=== PATIENT | female | born 1995 | race Caucasian/White ===

== ENCOUNTER 2017-09-29 19:50 | Inpatient (IN) | payer BC, MEDICAID ==
[~2017-09-29] VITALS: Ht 160 cm; Wt 59.5 kg
[2017-09-29] VITALS (10 sets, daily range): BP systolic 99–127; BP diastolic 53–84; PULSE 71–100; TEMP 98
[2017-09-29 21:54] LABS: BASO % 0.2 % (0.0-2.0); EOS % 0.3 % (0-4.0); GRAN # 9.8 (1.4-6.5); GRAN % 80.6 % (42.2-75.2); HEMATOCRIT 40.1 % (35.0-45.0); HEMOGLOBIN 13.8 g/dl (12.0-15.0); LYMPH # 1.5 (1.2-3.4); MEAN CELL VOLUME 90 fl (80.0-95.0); MEAN CORPUSCULAR HEMOGLOBIN 31 pg (26.0-32.0); MEAN CORPUSCULAR HGB CONC 34 g/dl (33.0-37.0); MEAN PLATELET VOLUME 11.5 fl (7.4-10.4); MONO # 0.7 (0.1-0.6); MONO % 5.9 % (1.7-9.3); PLATELET COUNT 207 K/mm3 (130-400); RED BLOOD COUNT 4.47 M/mm3 (4.10-5.30); WHITE BLOOD COUNT 12.1 K/mm3 (4.8-10.8)
[2017-09-29 22:05] LABS: AMPHETAMINE URINE NEGATIVE; BARBITURATES URINE NEGATIVE; BENZODIAZEPINES URINE NEGATIVE; BUPRENORPHINE URINE NEGATIVE; METHADONE URINE NEGATIVE; OPIATES URINE NEGATIVE; OXYCODONE URINE NEGATIVE; PHENCYCLIDINE URINE NEGATIVE; PROPOXYPHENE URINE NEGATIVE; THC CANNABINOIDS URINE NEGATIVE; TRICYCLIC ANTIDEPRESS URINE NEGATIVE
[2017-09-30] VITALS (44 sets, daily range): BP systolic 94–135; BP diastolic 53–86; PULSE 60–153; TEMP 97.5–99.6
[2017-09-30] MEDS ORDERED: PRENATAL (10:09)
[2017-10-01 07:46] LABS: HEMATOCRIT 30.8 % (35.0-45.0); HEMOGLOBIN 10.5 g/dl (12.0-15.0)
[2017-10-01 07:59] VITALS: BP 110/70; PULSE 78; TEMP 98.1
[2017-10-01] MEDS ORDERED: IBU600 MG PO (12:34)
== END 2017-10-01 15:22 | disposition home or self-care (01) | DRG 775 ==
LOC: LDRO 19:50 → OB 21:21 → LDR 21:21 → OB 09-30 11:11
PROVIDERS: Obstetrics & Gynecology
PROC: 10E0XZZ Delivery of Products of Conception, External Approach (ICD-10-PCS; principal; 2017-09-30)
PROC: 0HQ9XZZ Repair Perineum Skin, External Approach (ICD-10-PCS; 2017-09-30)
DX: O99.02 Anemia complicating childbirth (principal); D64.9 Anemia, unspecified; O70.0 First degree perineal laceration during delivery; Z3A.37 37 weeks gestation of pregnancy; Z37.0 Single live birth
CPT/HCPCS: J2590; J7120

== ENCOUNTER 2022-01-06 12:01 | Inpatient (IN) | payer OTHER ==
[2022-01-06] VITALS (21 sets, daily range): BP systolic 100–128; BP diastolic 51–86; PULSE 65–148; TEMP 97.6–98.3
[~2022-01-06] VITALS: Ht 160 cm; Wt 64.5 kg
[~2022-01-06 12:01] MED LIST: IBU600 MG PO; PRENATAL
--- NOTE | 2022-01-06 12:10 | NUR ---
1210- Pt to LDR1. Changes into clean gown. Pt reports normal movement. Denies any LOF or VB. Reports ctx every 3min since 0600 today. 1214- EFM explained and placed. VS obtained, assessment completed. 1231- Dr. Sexton updated on pt. See physician notification.
--- NOTE | 2022-01-06 12:57 | NUR ---
PT TO SITTING POSITION ON EDGE OF BED FOR EPIDURAL PLACEMENT. CONSENTS SIGNED. LR INFUSING PER PROTOCOL. VITAL SIGNS STABLE. DIFFICULTY TRACING EFM/TOCO DUE TO MATERNAL POSITIONING. 1257: SINGLE SHOT PER LIZBETH WATTS, PT TOLERATED PROCEDURE WELL.
--- NOTE | 2022-01-06 13:30 | NUR ---
Patient comfortable with epidural and wedged right. 1420: Armstrong catheter placed and patient tolerates well. SVE-8/90/-1 with bulgy bag noted. Patient repositioned and plan of care discussed. 1455: Dr. Sexton at bedside and assessing patient and FHR strip. 1457: SVE-8/100/0 and AROM at this time. 1550: SVE-10/100/+2 1555: Armstrong catheter removed. 1558: at bedside and patient prepped for vaginal delivery. 1605: Patient begins to push with each contraction. 1615: Spontaneous vaginal delivery of viable male-head followed by body. to patients abdomen and B.Jenny RN assumes care of infant. Cord clamped x2 by gilmer and cut by FOB. Cord blood obtained. 1619:Spontaneous delivery of placenta and pitocin bolus started per protocol. Pericare done, patient repositioned, and ice pack to perineum. Plan of care discussed.
[2022-01-06 13:33] LABS: BASO % 0.4 % (0.0-2.0); EOS % 0.1 % (0.0-4.0); GRAN # 6.6 K/mm3 (1.4-6.5); HEMOGLOBIN 13.6 g/dl (12.5-16.0); LYMPH # 1.1 K/mm3 (1.2-3.4); LYMPH % 13.3 % (20.0-51.0); MEAN CELL VOLUME 91 fl (80.0-100.0); MEAN CORPUSCULAR HEMOGLOBIN 31 pg (27-31); MEAN CORPUSCULAR HGB CONC 34 g/dl (33.0-37.0); MEAN PLATELET VOLUME 11.4 fl (7.4-10.4); MONO # 0.4 K/mm3 (0.1-0.6); MONO % 5.1 % (1.7-9.3); PLATELET COUNT 174 K/mm3 (130-400); RED BLOOD COUNT 4.42 M/mm3 (4.10-5.30); REDCELL DISTRIBUTION WIDTH-CV 14.3 % (11.5-14.5)
--- NOTE | 2022-01-06 21:00 | NUR ---
1839- REPORT REC'D FROM BONIFACIO ELIZABETH/ TRANSFER OF CARE. PT SITTING UP IN BED HOLDING INFANT. SPOUSE AT BS. PT REPORTS SHE JUST ATE HER DINNER. NO COMPLAINTS OF PAIN. H20 JUG REFILLED. 1899- IBUPROFEN PO AND TYLENOL PO GIVEN SCHEDULED. PT JUST REPORTS MILD DISCOMFORT. FUNDUS IS FIRM AND UMBILICUS, WITH MINIMAL BLEEDING. 1909- PT UP TO BR. ABLE TO AMBULATE INDEPENDENTLY W/O ANY ISSUES. STEADY GAIT. DENIES ANY LIGHTHEADEDNESS OR DIZZINESS. EZIO CARE PERFORMED PER PT AND CLOTHES CHANGED. 500 UO, CLEAR AND YELLOW. MILD DYSURIA. EZIO BOTTLE USED AND INSTRUCTIONS GIVEN. D/W PT ABOUT APPROPRIATE BLEEDING AND WHEN TO NOTIFY NURSE AND FREQUENCY OF AND PLAN OF CARE FOR THE NIGHT. PT VERBALIZES UNDERSTANDING. 1934- TRANSFERRED TO ROOM VIA W/C 2034- PT SITTING UP ON COUCH WITH SPOUSE SOCIALIZING. DENIES ANY NEEDS AT THIS TIME.
[2022-01-07 02:40] VITALS: BP 105/67; PULSE 82
[2022-01-07 07:20] LABS: HEMATOCRIT 33.1 % (37.0-47.0); HEMOGLOBIN 11.2 g/dl (12.5-16.0)
[2022-01-07 08:30] VITALS: BP 107/59; PULSE 66; TEMP 98.1
[2022-01-07] MEDS ORDERED: IBU600 MG PO (09:19)
--- NOTE | 2022-01-07 10:48 | NUR ---
Initial visit attempt; Nurse present, [employer] left card of congratulations for the of their son and information regarding the availabilty of spiritual care at our hospital.
[2022-01-07 12:34] VITALS: BP 105/74; PULSE 70; TEMP 97.8
--- NOTE | 2022-01-07 17:26 | NUR ---
DISCHARGE TEACHING COMPLETED. EDUCATED ON FOLLOW UP APPOINTMENT AND PRESCRIPTION. QUESTIONS INVITED AND ANSWERED.
[2022-01-07 17:27] VITALS: BP 109/66; PULSE 82; TEMP 98.2
== END 2022-01-07 18:10 | disposition home or self-care (01) | DRG 807 ==
LOC: LDRO 12:01 → LDR 12:14 → LDRO 12:36 → OB 12:37 → LDR 12:37 → OB 20:32
PROVIDERS: ADMIT Obstetrics & Gynecology
PROC: 10E0XZZ Delivery of Products of Conception, External Approach (ICD-10-PCS; principal; 2022-01-06)
PROC: 10907ZC Drainage of Amniotic Fluid, Therapeutic from Products of Conception, Via Natural or Artificial Opening (ICD-10-PCS; 2022-01-06)
DX: O99.62 Diseases of the digestive system complicating childbirth (principal); Z37.0 Single live birth; K21.9 Gastro-esophageal reflux disease without esophagitis; O99.344 Other mental disorders complicating childbirth; F32.A Depression, unspecified; O71.89 Other specified obstetric trauma; Z3A.38 38 weeks gestation of pregnancy
CPT/HCPCS: J2590; J7120